=== PATIENT | male | born 1990 | race Caucasian/White ===

== ENCOUNTER 2018-03-23 16:18 | Inpatient (IN) | payer OTHER ==
[~2018-03-23] VITALS: Ht 188 cm; Wt 66.2 kg
[2018-03-23] MEDS ORDERED: MAG HYDROX/AL HYDROX/SIMETH 30 ML LIQUID UDC PO PRN (18:15)
[2018-03-23] MEDS ORDERED: LOPERAMIDE HCL 2 MG CAPSULE PO PRN (18:15)
[2018-03-23] MEDS ORDERED: ONDANSETRON ODT 4 MG TAB.RAPDIS SL PRN (18:15)
[2018-03-23] MEDS ORDERED: LORAZEPAM 1 MG TABLET PO PRN ×8 (18:15→18:45)
[2018-03-23] MEDS ORDERED: 5 DAY TAPER OF LORAZEPAM -SERENITY PROTOCOL PO PRN ×2 (18:15→18:30)
[2018-03-23] MEDS ORDERED: 5 DAY TAPER BUPRENORPHINE -SERENITY PROTOCOL SL PRN (18:15)
[2018-03-23] MEDS ORDERED: BUPRENORPHINE HCL 2 MG TAB.SUBL SL PRN (18:15)
[2018-03-23] MEDS ORDERED: MAGNESIUM HYDROXIDE 30 ML LIQUID UDC PO PRN (18:15)
[2018-03-23 18:28] VITALS: BP 127/76
[2018-03-23] MEDS ORDERED: THIAMINE HCL 200 MG/2 ML VIAL IM ONE (18:30)
[2018-03-23] MEDS ORDERED: LORAZEPAM 2 MG/1 ML VIAL IM PRN (18:30)
[2018-03-23 18:42] LABS: *AMPHETAMINE, URINE NEGATIVE (NEGATIVE); *BARBITURATE, URINE NEGATIVE (NEGATIVE); *CANNABINOID, URINE POSITIVE (NEGATIVE); *COCCAINE, URINE NEGATIVE (NEGATIVE); *OPIATE, URINE NEGATIVE (NEGATIVE); *PHENCYCLIDINE SCREEN,URINE NEGATIVE (NEGATIVE)
[2018-03-23] MEDS ORDERED: TRAZ-144 PO (18:46)
[2018-03-23] MEDS ORDERED: TRAZ-147 PO (18:46)
[2018-03-23 18:51] LABS: BASOPHILS # (AUTO) 0.1 K/uL (0.0-8.0); BASOPHILS % (AUTO) 0.5 % (0.0-2.0); EOSINOPHILS # (AUTO) 0.2 K/uL (0.0-0.7); EOSINOPHILS % (AUTO) 1.4 % (0.0-7.0); HEMATOCRIT 41.5 % (36.7-47.1); HEMOGLOBIN 14.5 g/dL (12.5-16.3); LYMPHOCYTES # (AUTO) 4.6 K/uL (20.0-40.0); LYMPHOCYTES % (AUTO) 39.7 % (20.5-51.5); MEAN CORPUSCULAR HEMOGLOBIN 34.3 uug (23.8-33.4); MEAN CORPUSCULAR HGB CONC 35 g/dL (32.5-36.3); MEAN CORPUSCULAR VOLUME 97.8 fL (73.0-96.2); MONOCYTES # (AUTO) 0.8 K/uL (2.0-10.0); MONOCYTES % (AUTO) 6.7 % (0.0-11.0); NEUTROPHILS % (AUTO) 51.7 % (38.5-71.5); PLATELET COUNT (AUTO) 288 K/uL (152-348); RED BLOOD CELL COUNT(AUTO) 4.24 MIL/uL (4.06-5.63); WHITE BLOOD COUNT (AUTO) 11.6 K/uL (3.6-10.2)
--- NOTE | 2018-03-23 18:58 | NUR ---
PRN Subutex 4mg SL administered for COWS 13, client presents with anxiety, agitation, nasal congestion, yawning several times, dilated pupils, cold/chills, clammy skin and increase P 91. Incoming nurse to reassess. Call light within reach.
--- NOTE | 2018-03-23 19:08 | NUR ---
ADMISSION/END OF SHIFT Patient arrived on the unit at 1842, body search completed by PIANO MECHANIC APPRENTICE no contraband was found, body assessment completed by male nurse, patient skin was noted intact, with no breakdown noted. Patient was noted with right hand knuckle area swollen, but skin remains intact. Per patient he was "punching things, yesterday" patient verbalized "its broken", patient reports he has not had an xray of the right hand taken yet. Patient was oriented to unit and to room, education regarding call light use was provided with good verbal understanding. Patient noted with slurred speech, restlessness, anxious and fidgety. Breath noted with alcohol smell. Patient was also noted with poor eye contact, disheveled and odorous with dirty fingernails. Patient is alert and oriented x4, noted with steady gait during ambulation. Patient BP: 127/76, HR: 86, T: 98.4, R: 16, O2 SAT: 100% Room air. Patient reports 7/10 pain to right hand. Patient reports he is here "because i am a drug addict" Reports substance use of. 1. etoh- Had first drink at the age of 9, reports that for "years" has been consuming 1-1.5 pints of vodka on a daily basis, last consumed 0.5 pint of vodka on 03/23/2018. 2. Xanax- Per patient was prescribed to him "years ago" for anxiety, patient unable to recall first time drug was used. Reports that for "years" he has been taking 2mg PO on a daily basis. 3. Heroin- reports first used at the age of 18, but for the past year has been consuming 0.5-1 gram on a daily basis via IV. Patient reports last used 03/21/2018 0.2 grams. 4. marijuana- Reports he first used at the age of 89 years old, and for "years" has been consuming unknown amounts of marijuana via inhalation. Patient reports past medical history of: pancreatitis, diagnosed 2 years ago. And reports he was diagnosed with anxiety and depression "years ago" Patient reports he was hospitalized overnight for pancreatitis in the last month, unable to recall the date. reports he does have a primary care physician, but unable to recall the name of his MD, because he hasn't seen him in years. patient reports he takes trazodone 150mg PO QHS, did not bring medication with him. 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 Patient reports he struggles with sobriety because he is unable to cope with stress therefore he drinks and uses drugs. Patient reports he feels sad all the time, verbalized " I dont like myself and feel sad all the time" Patient report he wants to become sober and wants to stop drinking and using drugs, verbalized " i am tired of hurting other people". Patient currently denies any SI/HI. Patient reports that after he completes detox he would like to go to a treatment center, then once he is home, continue his career. Patients fall and seizure precautions observed and in place. patients respirations are even and unlabored, no SOB, lungs are clear upon auscultation. Abdomen is soft and non distended, no N/V/D noted. Patients bowel sounds heard in all quadrants. Patients safety measures in place. Report relayed to Dr. Izquierdo, admitting orders were obtained by charge nurse, all admitting orders were input into [facility]. Patient scheduled to begin a 5 day Ativan and 5 day Subutex taper as of , patient will have PRN medications for s/sx of withdrawal. Admitting cow score of: 10, at 1830. Patient continues under close observation. will continue to monitor. Reassessed cow score at: 1858, with cow score of: 13. Patient administered Subutex as ordered by staff nurse. patient endorsed to retail shift leader nurse, all pertinent information was discussed.
[2018-03-23 19:11] LABS: BILIRUBIN,TOTAL 0.5 mg/dL (0.2-1.0); CREATININE 0.9 mg/dL (0.6-1.3); MAGNESIUM 2.5 mg/dL (1.8-2.4); POTASSIUM 3.2 mmol/L (3.5-5.1); TOTAL PROTEIN, SERUM 9.3 g/dL (6.4-8.2)
--- NOTE | 2018-03-23 19:30 | NUR ---
Start of Shift Endorsement received from day nurse. Pt admitted approximately 1740 today, 03/23/18, for medically managed withdrawal from ETOH, Xanax, Heroin and Marijuana, with ETOH and Marijuana being used earlier in day. Pt listed as a full code, vegatarian diet with allergies to Morphine and onions. Prior SZ hx, last Sz being "several years ago". Pt starting 5 day Ativan and Subutex tapers on 03/24/18 Pt assessed in room. Pt cooperative and A&O x 4, able to answer questions and respond to requests appropriately. Pt appears disheveled and dirty, with dirty clothes, dirty fingernails. Pupils 5mm approximately 40 minutes post Subutex. Pt tremulous, with increased anxiety and agitation. Pain in r hand reported as 9/10 (injured hitting mailbox on previous day), X-ray done during assessment. When asked if ready to quit, pt states that he is, saying "it is so awful", and begins to cry. Pt states he's never known anything "but the dark side" with both parents being drug addicts. Emar reviewed with Ativan 1mg PO and Motrin 600mg PO selected for immediate interventions. Pt on safety precautions, bed locked and in lowest position with siderails up x 2 and padded, call cheng within reach Will monitor for duration of shift attending promptly to all s/s's distress or w/d.
--- NOTE | 2018-03-23 19:58 | NUR ---
PRN Reassessment Subutex 4mg SL given 1 hour prior for COWS of 13. Presently pt reports feeling more relaxed, improved anxiety, sweats/chills improved. Will continue to monitor for all s/s's distress and w/d Addendum: 03/23/18 at 2049 by MITZI SMITH RN Med Effective
[2018-03-23 20:00] VITALS: BP 137/83
[2018-03-23] MEDS ORDERED: POTASSIUM CHLORIDE 20 MEQ TAB.PRT.SR PO ONE (20:03)
--- NOTE | 2018-03-23 20:40 | NUR ---
PRN Meds Motrin 600mg PO for r hand pain (x-ray negative for fx's) and Ativan 1mg PO for CIWA of 12, pt with anxiety, HR 108. Will continue to monitor, reassessing in 1 hour and promptly attending to all s/s's distress and w/d.
[2018-03-23] MEDS: IBUPROFEN 600 MG TABLET PO PRN (20:41)
--- NOTE | 2018-03-23 21:40 | NUR ---
PRN Reassessment Motrin 600mg PO and Ativan 1mg PO given 1 hour prior for r hand pain, 5/10, and CIWA 12 (anxiety, agitation, sweats/chills, tremors). At present pt reports hand pain with medication and ice pack improved to 2/10, reports decrease in anxiety, sweats/chills. Agitation, tremors improved. Meds effective. Will continue to monitor for s/s's distress or w/d.
[2018-03-23] MEDS ORDERED: diphenhydrAMINE 50 MG CAPSULE PO ONE (23:30)
--- NOTE | 2018-03-23 23:45 | NUR ---
PRN Med Benedryl 50mg PO given for insomnia. Will continue to monitor, reassessing in 1 hour, and promptly attending to any s/s's of distress or w/d.
[2018-03-24] VITALS: BP 121/61
[2018-03-24] MEDS ORDERED: POTASSIUM CHLORIDE 20 MEQ TAB.PRT.SR PO ONE
--- NOTE | 2018-03-24 | NUR ---
COWS/CIWA Deferred VS's obtained/stable. RR 16, even and nonlabored. COWS/CIWA deferred r/t pt sleeping/refused. Will continue to monitor, promptly attending to all s/s's distress or w/d.
--- NOTE | 2018-03-24 00:45 | NUR ---
PRN Reassessment Benedryl 50mg PO given 1 hour prior for insomnia. At present pt is sleeping, RR 14, even and nonlabored. Med effective. Will continue to monitor, reassessing for any s/s's of distress or w/d.
[2018-03-24 04:00] VITALS: BP 103/66
--- NOTE | 2018-03-24 04:00 | NUR ---
COWS/CIWA Deferred VS's obtained/stable. RR 15, even and nonlabored. COWS/CIWA deferred r/t pt sleeping/refused. Will continue to monitor, promptly attending to all s/s's distress or w/d.
--- NOTE | 2018-03-24 07:22 | NUR ---
End of Shift Endorsement given to day nurse. Pt admitted 03/23/18 for medically managed withdrawal from ETOH, Xanax, and Heroin, starting 5 day Ativan and 5 day Subutex tapers 03/24/18. Pt is a full code, on a vegatarian diet with allergies to Morphine and onions. Patient slept intermittently during night, with Ativan 1mg PO and Benedryl 50mg PO given as PRN'S. Motrin 600mg PO also given for r hand pain and inflammation, with ice pack. X-ray confirms no fx's. Pt appears underweight, hydration and nourishment encouraged, able to eat cereal/milk. Pt appearing anxious prior to evening PRN administrations, with c/o sweats/chills, pupils 5mm, restless and fidgety. Eye contact remains avoidant, speech soft, affect flat, hair disheveled and unkempt. Pt becoming tearful in evening discussing drug use, parents drug use, and his desire to become sober. Pt is able to discuss obstacles, encouragement provided and treatment plan explained. Last COWS 12, CIWA 12. Pt slept for 6 hours for shift, with 1500mls intake and 3 voids. Pt remains on safety, fall and seizure precautions. Bed is locked in lowest position with siderails up x 2 and padded, call cheng within reach and frequent rounding on pt with all needs attended to.
--- NOTE | 2018-03-24 07:25 | NUR ---
BEGINNING OF SHIFT Patient endorsement report received from manager shift nurse, all pertinent information was discussed. patient admitted on 03/24/2018 with admitting Dx: etoh/bzo/opiate withdrawal. patient to begin a 5 day Ativan and 5 day Subutex taper, scheduled for day 1 this morning. Per manager shift patient received PRN: Ativan 1 mg, Motrin, and Benadryl, medications were effective. patient with last cow score of: 12, and last ciwa score of:12. Patient slept for 6 hours. fall and seizure precautions observed and in place. Patient received in bed sound asleep, respirations even and unlabored at 16 bpm. patient is responsive to verbal stimuli. Will educate patient regarding plan of care for the day and medication regimen. Safety measures are in place. call light with in reach, will continue to monitor.
[2018-03-24 08:23] VITALS: BP 126/77
[2018-03-24] MEDS: LORAZEPAM 1 MG TABLET PO SCH ×4 (08:28→20:40)
[2018-03-24] MEDS: FOLIC ACID 1 MG TABLET PO SCH (08:28)
[2018-03-24] MEDS: IBUPROFEN 600 MG TABLET PO PRN ×2 (08:28→19:36)
[2018-03-24] MEDS: THIAMINE HCL 100 MG TABLET PO SCH (08:28)
[2018-03-24] MEDS: MULTIVITAMINS,THERAPEUTIC TABLET PO SCH (08:28)
--- NOTE | 2018-03-24 08:28 | NUR ---
PRN MOTRIN Patient complains of 7/10 pain to right hand. Area still noted with swelling and redness, xray of right hand negative for fractures. Will monitor effectiveness of medication, safety measures are in place.
[2018-03-24] MEDS: BUPRENORPHINE HCL 2 MG TAB.SUBL SL SCH ×4 (08:29→20:40)
[2018-03-24] MEDS ORDERED: TUBERCULIN,PURIF.PROT.DERIV. 5 TU/0.1 ML TEST ID ONE (09:00)
[2018-03-24] MEDS ORDERED: MULTIVITAMINS,THERAPEUTIC TABLET PO SCH (09:00)
--- NOTE | 2018-03-24 09:29 | NUR ---
MOTRIN REASSESSMENT Patient reports medication effective, current pain level 3/10, tolerable pain level as per patient, will continue to monitor closely. safety measures are in place. call light kept with in reach, encouraged adequate PO fluid intake as tolerated. safety measures in place.
[2018-03-24 12:21] VITALS: BP 132/88
[2018-03-24 16:01] VITALS: BP 135/79
--- NOTE | 2018-03-24 16:06 | NUR ---
END OF SHIFT/ENDORSED CARE Patient alert and oriented x4, during shift. Patient with admitting Dx: bzo/etoh/opiate withdrawal. Patient began first day of detox taper, consisting of Ativan and Subutex taper as ordered. During shift patient presented with: sweats, restlessness, inability to stay still, enlarged pupils, tremors, bone and joint aches, anxiety, gooseflesh, mild sensitivity to noise, and head fullness. Patient with initial ciwa score of: 19, and cow score of: 16, last cow score of: 16 and ciwa score of: 19. Dr. Kirk was notified of patients ciwa score due to being above 15. Patient received PPD to right F/A, at 0832, procedure well tolerated. Received PRN: Ibuprofen during shift, medication was effective one hour post administration. Patient noted isolative, prefers to stay in room. Encouraged patient to participate in activities and group therapies/sessions, refused to attend despite much encouragement. Patient noted with depressed and anxious mood. Has flat affect with poor eye contact. Noted dishelved, encouraged patient maintenance of personal space and personal hygiene. Patient encouraged to increase PO fluid intake as tolerated, noted with fair appetite during shift. Patients fall and seizure precautions observed and in place at all times. Patient was endorsed to staff nurse, all pertinent information was discussed.
--- NOTE | 2018-03-24 16:07 | NUR ---
Received endorsement of patient. Pt A&O X4, no s/s distress. will continue to monitor for s/s of withdrawals.
[2018-03-24] MEDS ORDERED: TRAZODONE 100 MG TABLET PO SCH (18:00)
[2018-03-24 18:13] LABS: CREATININE 0.9 mg/dL (0.6-1.3); POTASSIUM 3.6 mmol/L (3.5-5.1)
[2018-03-24 18:19] LABS: BILIRUBIN,TOTAL 1.1 mg/dL (0.2-1.0); TOTAL PROTEIN, SERUM 8.1 g/dL (6.4-8.2)
--- NOTE | 2018-03-24 18:35 | NUR ---
End of shift Patient alert and oriented x4, during shift. No changes since endorsement at 1600. Pt continues to present with: sweats, restlessness, enlarged pupils, tremors, bone and joint aches, anxiety, gooseflesh, mild sensitivity to noise, and head fullness. At 1600 last COWS 16, CIWA 19. Received PRN: Ibuprofen during shift. PO fluids 1500 ml, voids X1. Pt reports ALLERGY TO Morphine and onions, FULL CODE. All safety precautions in place. Call light within reach. Bed lowest lock position. Fall and seizure precautions. Will continue to monitor for withdrawal symptoms. Endorsed to PM shift.
--- NOTE | 2018-03-24 19:30 | NUR ---
Start of Shift Note Received 27 y/o male px, admitted for medically supervised withdrawal from ETOH, Xanax, and Heroin. Px was placed on 5 day Ativan and 5 day Subutex taper started today, 03/24/2018. Px is tolerating them. Last reported COWS 16 and CIWA 19 at 1600 by AM shift nurse. During the rounds at 1930, px is awake on bed in left side lying position. Px appears disheveled, unshaven, odorous and anxious. Px has flat affect and poor eye contact. Snacks and drinks noted on top of his bed side table. Px stated My anxiety is 6/10 and body aches is 7 or 8/10. Px also complained of hot/cold flushes and chills. Bilateral hand tremors noted. Bed on lowest position, side rails up padded and call light within reach. Well continue to monitor.
[2018-03-24] MEDS: ACETAMINOPHEN 325 MG TABLET PO PRN (19:36)
--- NOTE | 2018-03-24 19:36 | NUR ---
PRN medications Px complained of generalized body aches of 7-8/10. Px received Motrin 600 mg/tab,1 tab and Tylenol 325 mg/tab, 2 tabs as PRN meds. To reassess pain after 1 hour of administration. We'll continue to monitor.
[2018-03-24 20:00] VITALS: BP 129/85
[2018-03-24] MEDS: TRAZODONE 100 MG TABLET PO SCH (20:38)
--- NOTE | 2018-03-24 21:40 | NUR ---
Reassessment of pain Px stated "my pain right now is 5/10." We'll continue to monitor.
[2018-03-25] VITALS: BP 121/79
--- NOTE | 2018-03-25 | NUR ---
COWS and CIWA deferred COWS and CIWA deferred due to the px is asleep, to asses if the px is awake per doctor's order, We'll continue to monitor.
[2018-03-25] MEDS ORDERED: diphenhydrAMINE 50 MG CAPSULE PO ONE ×2 (01:00→23:00)
--- NOTE | 2018-03-25 01:10 | NUR ---
1x dose Benadryl Px complained of insomnia. Px received Benadryl 50 mg/cap, 1 cap PO as 1x dose medication. We'll continue to monitor.
[2018-03-25 04:00] VITALS: BP 118/74
--- NOTE | 2018-03-25 04:00 | NUR ---
COWS and CIWA deferred COWS and CIWA deferred due to the px is asleep, to assess if the px is awake per doctor's order. We'll continue to monitor.
[2018-03-25] MEDS: ACETAMINOPHEN 325 MG TABLET PO PRN ×2 (06:28→20:41)
[2018-03-25] MEDS: IBUPROFEN 600 MG TABLET PO PRN ×2 (06:28→20:40)
--- NOTE | 2018-03-25 06:28 | NUR ---
Body aches Px complained of generalized body aches of 8/10. Px received Motrin 600 mg/tab,1 tab and Tylenol 325 mg/tab, 2 tabs as PRN meds. To reassess after 1 hour of administration. We'll continue to monitor.
--- NOTE | 2018-03-25 07:10 | NUR ---
End of Shift Note During the shift at 1936, px received Motrin 600 mg PO and Tylenol 650 mg PO as PRN med for body aches of 7-8/10. They were effective. At 0110, px requested for something to help him sleep, Benadryl 50 mg given PO as 1x dose medication. It was effective. Px slept after an hour. Px slept for total of 7 hours. Pxs oral intake is 500 ml, voided 1x, without BM. Last COWS 12 and CIWA 15. At 0628, px received Motrin 600 mg PO and Tylenol 650 mg PO as PRN med for body aches of 8/10. At 0630, px is awake on bed in fowlers position. Bed on lowest position, side rails up padded and call light within reach. Well continue to monitor. Px is endorsed to AM shift nurse.
--- NOTE | 2018-03-25 07:30 | NUR ---
START OF SHIFT Client is in room, he is a/o x 4, he is fully ambulatory, pacing in his room, he stated, "I am super anxious, I can't stop the thoughts in my head, I need to sleep or I'm going to lose it." Client reports agitation, irritability, restless legs, generalized body aches, headache, abdominal cramps, tremors, decreased appetite, inability to sleep, and fatigue. Client presents with anxious, irritable mood, flat affect, dilated pupils, tremors, skin warm/clammy, and goosebump. He appears disheveled, scattered dirty clothes on the floor. Encourage client to keep his surroundings clean and free of clutter to prevent a fall, he verbalized understanding. Last CIWA / 12 @ 1999. PRN Tylenol 650mg PO & Motrin 600mg PO administered twice last night for generalized body aches, noted effective. PRN Benadryl 50mg PO for inability to sleep, client slept 7 hrs. Encourage client to increase PO fluid to facilitate detox. Encourage client to attend group therapy to learn skills to maintain sober. Seizure precautions rendered. Call light within reach.
[2018-03-25 08:00] VITALS: BP 122/74
[2018-03-25] MEDS: THIAMINE HCL 100 MG TABLET PO SCH (08:58)
[2018-03-25] MEDS: FOLIC ACID 1 MG TABLET PO SCH (08:58)
[2018-03-25] MEDS: LORAZEPAM 1 MG TABLET PO SCH ×3 (08:58→20:40)
[2018-03-25] MEDS: MULTIVITAMINS,THERAPEUTIC TABLET PO SCH (08:58)
[2018-03-25] MEDS: BUPRENORPHINE HCL 2 MG TAB.SUBL SL SCH ×3 (08:59→20:41)
[2018-03-25 10:06] LABS: HEPATITIS B SURFACE AG Negative (Negative)
[2018-03-25] MEDS: QUETIAPINE FUMARATE 25 MG TABLET PO SCH ×2 (10:17→17:06)
[2018-03-25 12:00] VITALS: BP 137/86
--- NOTE | 2018-03-25 14:01 | NUR ---
Client was prompted to attend group counseling sessions and agreed to do so.
[2018-03-25 16:55] VITALS: BP 127/69
--- NOTE | 2018-03-25 19:16 | NUR ---
END OF SHIFT Client is in group therapy, he is a/o x 4, he continues to present with agitation, irritability, restless legs, generalized body aches, headache, abdominal cramps, tremors, decreased appetite, feeling paranoid, and fatigue. Last CIWA 15 /COWS 15 @ 1600. Started Seroquel 50 mgs PO BID. Client is compliant with group therapy. Client consumes 50-75% of meals. Adequate PO fluid 2500mL, void x 6. Seizure precautions rendered. Call light within reach.
--- NOTE | 2018-03-25 19:30 | NUR ---
Start of Shift Note Received 27 y/o male px, admitted for medically supervised withdrawal from ETOH, Xanax, and Heroin. Px was placed on 5 day Ativan and 5 day Subutex taper started 03/24/2018. Px is tolerating them. Last reported COWS 15 and CIWA 15 by AM shift nurse. During the rounds at 1930, px is awake on bed in fowlers position. Px appears disheveled, unshaven, and odorous. Px seems better than yesterday. Px has good eye contact. Snacks and drinks noted on top of his bed side table. Px stated My anxiety is 3/10 and body aches is 6/10. Px complained of visual hallucination, hot/cold flushes, sweats and chills. Bilateral hand tremors noted. Bed on lowest position, side rails up padded and call light within reach. Well continue to monitor.
[2018-03-25 20:00] VITALS: BP 128/75
[2018-03-25] MEDS: TRAZODONE 100 MG TABLET PO SCH (20:40)
--- NOTE | 2018-03-25 20:40 | NUR ---
PRN medications Px complained of generalized body aches of 6/10. Px received Motrin 600 mg/tab,1 tab and Tylenol 325 mg/tab, 2 tabs as PRN meds. To reassess pain after 1 hour of administration. We'll continue to monitor.
--- NOTE | 2018-03-25 21:40 | NUR ---
Reassessment of Pain Px stated that he feels better now with pain scale of 3-4/10. We'll continue to monitor.
--- NOTE | 2018-03-25 23:04 | NUR ---
1x dose of Benadryl Px requested for Benadryl. 1x dose of Benadryl 50 mg PO was given for insomnia. We'll continue to monitor.
[2018-03-26] VITALS: BP 123/72
--- NOTE | 2018-03-26 01:08 | NUR ---
1x dose Vistaril Px still complained of anxiety and insomnia. Vistaril 25 mg/cap, 2 caps given PO as 1x dose medication. We'll continue to monitor.
[2018-03-26] MEDS ORDERED: HYDROXYZINE PAMOATE 25 MG CAPSULE PO ONE (01:30)
--- NOTE | 2018-03-26 02:10 | NUR ---
Reassessment of insomnia Px still awake and can't sleep. Vistaril and Benadryl were not effective. We'll continue to monitor.
[2018-03-26 04:00] VITALS: BP 129/78
[2018-03-26] MEDS ORDERED: LORAZEPAM 1 MG TABLET PO ONE ×2 (04:00)
--- NOTE | 2018-03-26 04:08 | NUR ---
1x dose of Ativan Ativan 1 mg/tab, 2 tabs given PO as 1x dose for increase anxiety and agitation. CIWA 21 at this time. We'll continue to monitor.
--- NOTE | 2018-03-26 07:10 | NUR ---
End of Shift Note During the shift at 2040, px received Motrin 600 mg PO and Tylenol 650 mg PO as PRN med for body aches of 7/10. They were effective. At 2304, px requested for something to help him sleep, Benadryl 50 mg given PO as 1x dose medication. It was not effective. At 0108, Vistaril 50 mg given PO for anxiety and insomnia. It was not effective. At 0408, Px received Ativan 2 mg PO as 1 x dose for agitation and increase anxiety. Pxs oral intake is 1000 ml, voided 3x, without BM. Px slept for 1 hours. Last COWS 16 and CIWA 21. At 0630, px is asleep on bed in fowlers position. Bed on lowest position, side rails up padded and call light within reach. Well continue to monitor. Px is endorsed to AM shift nurse.
--- NOTE | 2018-03-26 07:52 | NUR ---
START OF SHIFT Pt is a 27 yr old male. AA&Ox4. Pt was admitted on 03/23/18 for ETOH/Benzo/Opiate withdrawal and is on 5 day Ativan and 5 day Subutex taper as ordered. Received report from compensation coordinator nurse. Pt received Motrin PRN, Tylenol PRN, Benadryl PRN and Ativan 2mg x1 during the night. Medication was ineffective. Pt had difficulty sleeping through the night and slept for 1 hrs. Pt is currently c/o difficultly sleeping, generalized muscle aching, abdominal cramping, visual and auditory hallucinations, and nausea. Pt denies any episodes of emesis. Pt was encouraged increase fluid intake. Pt is on fall and seizure precautions. Call light is within reach. Will continue to monitor.
[2018-03-26 08:00] VITALS: BP 144/103
[2018-03-26] MEDS: MULTIVITAMINS,THERAPEUTIC TABLET PO SCH (08:10)
[2018-03-26] MEDS: IBUPROFEN 600 MG TABLET PO PRN ×2 (08:10→20:29)
[2018-03-26] MEDS: QUETIAPINE FUMARATE 25 MG TABLET PO SCH (08:10)
--- NOTE | 2018-03-26 08:10 | NUR ---
PRN GIVEN Pt is c/o generalized body aches 03/04. facial grimacing is observed. Motrin 600mg PO PRN was given as ordered. Encourged increase fluid intake. Will continue to monitor.
[2018-03-26] MEDS: THIAMINE HCL 100 MG TABLET PO SCH (08:11)
[2018-03-26] MEDS: FOLIC ACID 1 MG TABLET PO SCH (08:11)
[2018-03-26] MEDS: LORAZEPAM 1 MG TABLET PO SCH ×4 (08:15→20:29)
[2018-03-26] MEDS ORDERED: BUPRENORPHINE HCL 2 MG TAB.SUBL SL SCH (09:00)
--- NOTE | 2018-03-26 09:10 | NUR ---
PRN RE-ASSESSMENT Motrin PRN was effective. Pt states pain level subsided to 3/10. Encouraged increase fluid intake. Will continue to monitor.
[2018-03-26 12:00] VITALS: BP 141/85
[2018-03-26] MEDS: ACETAMINOPHEN 325 MG TABLET PO PRN (13:14)
--- NOTE | 2018-03-26 13:14 | NUR ---
PRN GIVEN Pt c/o generalized body aches 5/10. facial grimacing is observed. Tylenol 650mg PO PRN was given as ordered. Encouraged increase fluid intake. Will continue to monitor
--- NOTE | 2018-03-26 14:14 | NUR ---
PRN RE-ASSESSMENT Tylenol PO PRN was effective. pt states pain level subside to 2/10. Encouraged increase fluid intake. Will continue to monitor.
[2018-03-26] MEDS: BUPRENORPHINE HCL 2 MG TAB.SUBL SL SCH ×2 (14:48→20:29)
[2018-03-26 16:00] VITALS: BP 127/75
--- NOTE | 2018-03-26 19:00 | NUR ---
END OF SHIFT Pt is a 27 yr old male, AA&Ox4. Pt was admitted on 03/13/18 for ETOH/BENZO/Opiate withdrawal and is on 5 day Ativan and 5 day Subutex taper as ordered. Medication allison well. Pt has been c/o auditory hallucinations, lack of sleep and loss of appetite, generalized body aches, nausea, anxiety and agitation. Pt was noted with flat affect. Fine tremors were noted on BUE. No SI/HI noted. Pt was seen and examined by Dr. Benitez. Pt refused to take any psychotropic medication as prescribed and refused to take Seroquel. Dr. Benitez discontinued Seroquel order and increased the dose for Trazodone for insomnia. Pt was encouraged increase fluid intake for hydration. Pt received Motrin 600mg PO PRN at 0810 and Tylenol 650mg PO PRN at 1314 for pain mgt. Medication was effective. Last COWS score was 10 and CIWA score was 13 at 1600. Safety precautions observed. Call light is within reach. Endorsed to speech lang path nurse to continue with care.
[2018-03-26 20:00] VITALS: BP 123/74
--- NOTE | 2018-03-26 20:00 | NUR ---
START OF SHIFT NOTE RECEIVED REPORT FROM DAY SHIFT NURSE. PATIENT IS A 27 YEAR OLD MALE ADMITTED FOR 27 YEAR OLD FOR ETOH/BENZO/OPIATE WITHDRAWAL. PATIENT IS ON HIS 3RD OF HIS 5 DAY ATIVAN AND 5 DAY SUBUTEX TAPER. PATIENT WAS HAVING DIFFICULTY FALLING ASLEEP LAST NIGHT. PRN TRAZADONE WAS INCREASED. PATIENT WAS GIVEN PRN MOTRIN AND TYLENOL. LAST COWS 10 AND CIWA 13. PATIENT IN BED, ALERT AND ORIENTED X 4. RESPIRATION EVEN AND UNLABORED. PATIENT PRESENTS WITH FLAT AFFECT, DEPRESSED MOOD, ANXIETY, IRRITATED, SWEATING, MOIST PALMS, HE FEELS HOT AND COLD, ITCHING, SENSITIVE TO LIGHT , SLIGHT TREMORS TO BILATERAL HANDS. HE STATES THE MAIN THING IS MY INSOMNIA . 'I'M SO TIRED AND I WANT TO GO TO SLEEP. RELAXATION TECHNIQUE AND POSITIVE ENCOURAGEMENT GIVEN. WILL CONTINUE TO MONITOR.
[2018-03-26] MEDS: TRAZODONE 100 MG TABLET PO SCH (20:29)
--- NOTE | 2018-03-26 20:29 | NUR ---
PRN MOTRIN ADMINISTRATION PATIENT C/O GENERALIZED BODY ACHES. WILL MONITOR FOR EFFECTIVENESS
--- NOTE | 2018-03-26 21:29 | NUR ---
PRN MOTRIN RE-ASSESSMENT PATIENT STATES MOTRIN HELPFUL AND EFFECTIVE.
--- NOTE | 2018-03-26 22:22 | NUR ---
PRN Zyprexa Zydis Patient verbalized inability to sleep and is getting agitated. Dr. Benitez notified and he ordered Zyprexa Zydis 10 mg one-time.
[2018-03-26] MEDS ORDERED: OLANZAPINE ZYDIS 5 MG TAB.RAPDIS PO ONE (22:30)
--- NOTE | 2018-03-26 23:22 | NUR ---
ONE TIME ZYPREXA RE-ASSESSMENT PATIENT IN THE ROOM, STILL AWAKE . ZYPREXA INEFFECTIVE. RELAXATION TECHNIQUE PROVIDED.
[2018-03-27] VITALS: BP_SYST 128; BP_SYST 144; BP_DIAS 78; BP_DIAS 79
--- NOTE | 2018-03-27 00:23 | NUR ---
ONE TIME ATIVAN ADMINISTRATION PATIENT AGITATED, UNABLE TO SLEEP, RESTLESS, ANXIOUS, NOTED TOSSING AND TURNING IN BED. WILL MONITOR FOR EFFECTIVENESS
[2018-03-27] MEDS ORDERED: LORAZEPAM 1 MG TABLET PO ONE ×2 (00:30→06:15)
--- NOTE | 2018-03-27 01:23 | NUR ---
PRN ATIVAN RE-ASSESSMENT PATIENT IN BED, AWAKE. STILL ANXIOUS, RESTLESS, IRRITABLE , TOSSING AND TURNING IN BED. CIWA 17
[2018-03-27] MEDS: IBUPROFEN 600 MG TABLET PO PRN (02:41)
--- NOTE | 2018-03-27 02:41 | NUR ---
PRN BENADRYL AND MOTRIN ADMINISTRATION PATIENT STILL WITH DIFFICULTY FALLING ASLEEP AND C/O GENERALIZED BODY ACHES. WILL MONITOR FOR EFFECTIVENESS
[2018-03-27] MEDS ORDERED: diphenhydrAMINE 50 MG CAPSULE PO ONE (02:45)
[2018-03-27] MEDS ORDERED: LORAZEPAM 2 MG/1 ML VIAL IM ONE (03:00)
[2018-03-27] MEDS ORDERED: diphenhydrAMINE 50 MG/1 ML VIAL IM ONE (03:00)
[2018-03-27] MEDS ORDERED: HALOPERIDOL LACTATE 5 MG/1 ML VIAL IM ONE (03:00)
--- NOTE | 2018-03-27 03:20 | NUR ---
One-time Haldol, Ativan and Benadryl IM Stat Around 0255, patient experienced auditory and visual hallucinations, screaming inside his room, stating that he was being chased by the police and he is seeing his mom being hit by the bat. Dr. Benitez notified, ordered one-time Haldol 5 mg IM stat, one-time Ativan 2 mg IM stat and one-time Benadryl 50 mg IM stat. Medications administered. Patient was placed on 1:1 per MD order.
--- NOTE | 2018-03-27 03:50 | NUR ---
ONE TIME HALDOL, ATIVAN AND BENADRYL RE-ASSESSMENT PATIENT IN BED, STILL REMAIN AWAKE BUT CALM. ON 1:1 FOR SAFETY. WILL CONTINUE TO MONITOR
[2018-03-27 04:00] VITALS: BP 116/74
[2018-03-27] MEDS ORDERED: CLONIDINE HCL 0.1 MG TABLET PO ONE (05:15)
--- NOTE | 2018-03-27 05:26 | NUR ---
PRN CATAPRES ADMINISTRATION PATIENT STILL AWAKE, RESTLESS, PACING INSIDE THE ROOM, ANXIOUS WITH AUDITORY AND VISUAL HALLUCINATIONS. CONTINUE ON 1:1 FOR SAFETY MEASURES.
--- NOTE | 2018-03-27 06:18 | NUR ---
PRN ATIVAN ADMINISTRATION PATIENT STILL HAVING AUDITORY HALLUCINATIONS STATING HE SEES SHADOWS, TECH NOTED GRABBING UNSEEN OBJECTS AND AIR AND TALKING TO SELF. NOTIFIED AND MADE AN ORDER TO GIVE ATIVAN. WILL MONITOR FOR EFFECTIVENESS. ON 1:1 FOR SAFETY .
--- NOTE | 2018-03-27 06:26 | NUR ---
PRN CATAPRES RE-ASSESSMENT PATIENT STILL ANXIOUS, MEDICATION INEFFECTIVE. WILL CONTINUE TO MONITOR
--- NOTE | 2018-03-27 07:18 | NUR ---
PRN ATIVAN RE-ASSESSMENT PATIENT STILL AWAKE AND STATES HE STILL CAN SLEEP. PATIENT NOTED STILL HAVING AUDITORY AND VISUAL HALLUCINATION
--- NOTE | 2018-03-27 07:23 | NUR ---
END OF SHIFT NOTE PATIENT SLEPT 1 HOURS. FLUID INTAKE 500 ML. VOIDED X 1. NO BM. PATIENT HAD DIFFICULTY FALLING ASLEEP AND HAD AN EPISODE OF AUDITORY AND VISUAL HALLUCINATION DURING SHIFT. TRAZADONE WAS INCREASED BY THE PSYCHIATRIST BUT INEFFECTIVE. SCHEDULED MEDICATION AND TAPER WAS GIVEN SCHEDULED. PRN MOTRIN WAS GIVEN DUE TO GENERALIZED BODY ACHES. AT 2234, WAS NOTIFIED DUE TO PATIENT UNABLE TO FALL ASLEEP, ONE TIME ZYPREXA ZYDIS GIVEN BUT INEFFECTIVE. AT 22, PRN ATIVAN WAS GIVEN BUT INEFFECTIVE. PRN BENADRYL AND MOTRIN WAS GIVEN AT 024 . AT 0255, PATIENT WAS HAVING AUDITORY AND VISUAL HALLUCINATION , PATIENT WAS YELLING AND SCREAMING IN THE ROOM, HE STATES THAT HE WAS BEING CHASED BY THE POLICE AND HE IS SEEING HIS MOM BEING HIT BY THE BAT, PRN ATIVAN IM, BENADRYL IM AND HALDOL IM GIVEN. PATIENT STILL AWAKE BUT CALM AFTER RE-ASSESSMENT. PATIENT WAS PUT ON 1:1 FOR SAFETY. AT 0526, PATIENT NOTED PACING THE HALLWAY, ANXIOUS, RESTLESS. PRN CLONIDINE GIVEN, INEFFECTIVE. CONTACTED AND MADE NEW ORDER OF ATIVAN FOR AUDITORY AND VISUAL HALLUCINATIONS, RESTLESSNESS, AND ANXIETY. PRN ATIVAN INEFFECTIVE, HE STATES HE STILL CAN SLEEP AND NOTED WITH AUDITORY AND VISUAL HALLUCINATIONS. CONTINUOS REDIRECTION THROUGHOUT SHIFT AND RELAXATION TECHNIQUE PROVIDED. ENDORSED TO NEXT SHIFT. WILL CONTINUE TO MONITOR. LAST 17 AND .
--- NOTE | 2018-03-27 07:40 | NUR ---
START OF SHIFT Pt is a 27 yr old male. AA&O to person, place and situation. Pt was admitted on 03/23/18 for ETOH/Benzo/Opiate withdrawal and is on 5 day Ativan and 5 day Subutex taper as ordered. Received report from commercial retoucher nurse. Pt received multiple PRNs during the night for visual and auditory hallucinations. Pt was placed on 1:1 for safety. All PRN's were ineffective. Pt continues to have auditory and visual hallucinations. Pt was not able to sleep during the night and only slept for 1 hr. Pt is noted with fine tremors on BUE. Pt is c/o generalized body aches, fatigue and lack of sleep. Pt is on fall and seizure precautions. Call light is within reach. Will continue to monitor.
[2018-03-27 08:00] VITALS: BP 120/66
[2018-03-27] MEDS: MULTIVITAMINS,THERAPEUTIC TABLET PO SCH (08:23)
[2018-03-27] MEDS: ACETAMINOPHEN 325 MG TABLET PO PRN (08:23)
[2018-03-27] MEDS: LORAZEPAM 1 MG TABLET PO SCH ×2 (08:23→14:57)
[2018-03-27] MEDS: FOLIC ACID 1 MG TABLET PO SCH (08:23)
[2018-03-27] MEDS: BUPRENORPHINE HCL 2 MG TAB.SUBL SL SCH ×3 (08:23→21:38)
--- NOTE | 2018-03-27 08:23 | NUR ---
PRN GIVEN Pt c/o generalized body aches 01/02. Tylenol 650mg PO PRN was given as ordered. encouraged increase fluid intake. Will continue to monitor.
[2018-03-27] MEDS: THIAMINE HCL 100 MG TABLET PO SCH (08:33)
--- NOTE | 2018-03-27 09:00 | NUR ---
COMMUNICATION/CRISIS TEAM CALLED Pt is noted with increase confusion and visual and auditory hallucinations. Pt was noted walking down the hallway and stating he was looking for his grandmother. Pt then stated of wanting to leaving AMA to be with his dog. Pt states his dog "has 2 days to live" and wants to spend the remaining time with his dog. Pt is noted with slurred speech and is flat affect. Fine tremors are seen on BUE. Pt is oriented to person and situation but is confused in place and time. Dr. Benitez was notified with new order to call Crisis team to evaluate. Crisis Team was call at this time. DILIP Brown was contacted. Will continue to f/u
--- NOTE | 2018-03-27 09:23 | NUR ---
PRN RE-ASSESSMENT Tylenol PRN was effective. Pt denies any pain or discomfort. Will continue to monitor
[2018-03-27] MEDS ORDERED: LORAZEPAM 1 MG TABLET PO PRN (09:30)
--- NOTE | 2018-03-27 10:00 | NUR ---
CRISIS TEAM ARRIVED DILIP Brown arrived on the unit. Will continue to f/u.
--- NOTE | 2018-03-27 10:15 | NUR ---
[address] on a 5150 hold for gravely disabled adult at this time.
--- NOTE | 2018-03-27 10:20 | NUR ---
MD Communication Dr. Kirk notified that pt is placed on [address] score [address] Kirk ordered Ativan 2mg IV Q2HPRN for CIWA >16. New ordered noted and carried out.
[2018-03-27] MEDS ORDERED: LORAZEPAM 2 MG/1 ML VIAL IV PRN (10:30)
--- NOTE | 2018-03-27 11:34 | NUR ---
PRN GIVEN Pt continues to have visual and auditory hallucinations. Pt states of seeing his girlfriend in the hallway. Pt's speech is noted garbled. Fine tremors are noted on BUE. CIWA score is 40. Ativan 2mg PO PRN was administered as ordered. Ativan 2mg/IM PRN was not administered due to pt does not have an IV access at this time. RN nurse had x2 attempts to insert IV with no success. Resource nurse was contacted. Dr. Kirk was made aware. Will continue to f/u.
[2018-03-27 12:00] VITALS: BP 118/62
--- NOTE | 2018-03-27 12:00 | NUR ---
IV INSERT 20 gauge IV was insert on Right FA. IV is intact and patent.
--- NOTE | 2018-03-27 12:34 | NUR ---
PRN RE-ASSESSMENT Ativan 2mg PO PRN was effective. CIWA score went from 40 to 34 within 1 hour. Pt continues to be noted with visual and auditory hallucinations. Pt was able to rest for 30 minutes. Pt was encouraged increase fluid intake for hydration. 1:1 sitter is at bedside. Will continue to monitor.
--- NOTE | 2018-03-27 13:50 | NUR ---
PRN Ativan Pt has visual and auditory hallucinations. He is confused to place and time. Speech is incoherent. He is observed with tremors. CIWA 34. PRN Ativan IV administered per orders.
--- NOTE | 2018-03-27 14:15 | NUR ---
PRN RE-ASSESSMENT Pt continues to be observed wtih increase confusion to place, time and situation. Pt is still noted with visual and auditory hallucinations. Pt is stating, "I'm the character, I need to print that form for me". Seat Pack Inspector tried to redirect pt to reality but was unsuccessful. Fine tremors are noted. CIWA score at this time is 33. Dr. Kirk is made aware with new order to discontinue Ativan taper and change taper to 4 day Phenobarbital taper starting today on 03/27/18. New order was noted and carried out.
[2018-03-27] MEDS ORDERED: 6 DAY PHENOBARBITAL TAPER -SERENITY PROTOCOL PO PRN (15:30)
[2018-03-27] MEDS ORDERED: PHENOBARBITAL 60 MG TABLET PO ONE ×2 (15:45→21:00)
[2018-03-27 16:00] VITALS: BP 142/101
[2018-03-27] MEDS: OLANZAPINE ZYDIS 5 MG TAB.RAPDIS PO SCH (16:32)
[2018-03-27] MEDS ORDERED: PHENOBARBITAL 60 MG TABLET PO SCH ×2 (17:00→17:50)
--- NOTE | 2018-03-27 19:00 | NUR ---
END OF SHIFT Pt is a 27 yr old male, AA&O to person. Pt has been noted with increase confusion and visual and auditory hallucinations. Pt remains on 1:[address] for [address] on 5150 for gravely disabled adult. Pt was seen and examined by Dr. Kirk with new order to discontinue Ativan taper and start on 4 day Phenobarbital taper as ordered. Last COWS score was 13 and CIWA score was 32 at 1600. Pt received Tylenol PO PRN at 0823, Ativan 2mg PO PRN at 1134 and Ativan 2mg /IV at 1345. Medication was some what effective. Pt still was unable to sleep during the day. Pt was encouraged increase fluid intake for hydration. Safety precautions observed. Endorsed to night warehouse selector nurse to continue with care.
--- NOTE | 2018-03-27 19:51 | NUR ---
START OF SHIFT NOTE Rcvd report from outgoing nurse, pt is currently in his room. Pt is a 27 y/o male A/O to person only. Pt was admitted fro medically supervised withdrawal from ETOH, Xanax, and Heroin. Pt. has a 20g. on the right forearm. Pt c/o body aches, sweats, chills, nausea, fine tremors, and cramping. Pt has been presenting w/ insomnia, anxiety, and visual hallucinations. Pt has not slept since admission on 03/23/18 except for 30 min. Pt has been placed on a 5150 as of 1030 03/27/18 for being gravely disabled. Pt is currently on 1:1 to observation. PRN Ativan IVP and PO, Phenobarbital, and Tylenol given and noted ineffective during previous shift. Last CIWA 32 and COWS 13 @ 1600. Call light is within reach. Pt will continue to be monitored and needs met.
[2018-03-27 20:00] VITALS: BP 116/71
[2018-03-27] MEDS: TRAZODONE 100 MG TABLET PO SCH (21:37)
--- NOTE | 2018-03-27 22:35 | NUR ---
MD Verbal Order: New order per MD to renew 2mg Ativan IV Q2HPRN for an additional 12 hours. New order to redraw CBC, CMP, Magnesium routine.
[2018-03-28] VITALS: BP 112/66
[2018-03-28] MEDS: LORAZEPAM 2 MG/1 ML VIAL IV PRN ×3 (00:01→05:11)
--- NOTE | 2018-03-28 00:01 | NUR ---
PRN ATIVAN ADMINISTRATION Ativan 2mg IVP given for CIWA > 16. CIWA 34. Pt c/o insomnia and presenting w/ anxiety, agitation, and restlessness. Will reassess in 1 hr.
--- NOTE | 2018-03-28 00:31 | NUR ---
PRN ATIVAN REASSESSMENT Pt is awake and in bed. Pt continues to be restless and agitated. Pt still c/o anxiety. Will discuss pt w/ Dr. Kirk.
--- NOTE | 2018-03-28 01:44 | NUR ---
BEHAVIORAL NOTE Pt pulled out his IV access. Pt stated "I didn't know I wasn't supposed to do that". Site was assessed and dressed. New IV access was established in pt's right wrist w/ 20gauge. IV was flushed and is patent. Site was wrapped w/ tape and krylix.
--- NOTE | 2018-03-28 02:27 | NUR ---
PRN ATIVAN ADMINISTRATION Ativan 2mg IVP given for CIWA >16. CIWA 34. Pt is presenting w/ insomnia. Will reassess pt in 30 min.
--- NOTE | 2018-03-28 02:57 | NUR ---
PRN ATIVAN REASSESSMENT Pt is awake in bed. Pt is restless and having auditory hallucinations. Will reevaluate @ 0427 and every 2 hrs thereafter per MD.
[2018-03-28 04:00] VITALS: BP 106/72
--- NOTE | 2018-03-28 05:11 | NUR ---
PRN ATIVAN ADMINISTRATION Ativan 2mg IVP given for CIWA > 16. CIWA 33. Pt still presenting w/ insomnia. Will reassess pt in 30 min.
--- NOTE | 2018-03-28 05:41 | NUR ---
PRN ATIVAN REASSESSMENT Pt is awake in bed. Pt is restless and experiencing auditory and visual hallucinations. Will continue w/ Ativan per MD order Q2HR.
--- NOTE | 2018-03-28 07:23 | NUR ---
END OF SHIFT NOTE Endorsed pt to oncoming nurse, pt is currently in his room. Pt is a 27 y/o male A/O to person and place. Pt was admitted for medically supervised withdrawal from ETOH, Xanax, and Heroin. Pt. has a 20g. on the right wrist after pulling out the IV access in the right forearm. Pt c/o body aches, sweats, chills, nausea, fine tremors, and cramping. Pt has been presenting w/ insomnia, anxiety, and visual and auditory hallucinations. Pt has not slept since admission on 03/23/18 except for 10 min sporadically. Pt has been placed on a 5150 as of 1030 03/27/18 for being gravely disabled. Pt is currently on 1:1 to observation. PRN Ativan 2mg IVP x 3 given for insomnia and noted ineffective. Pt's fluid intake was 1380ml and he voided 5 times. Last CIWA 33 and COWS 10 @ 0400. Call light is within reach.
--- NOTE | 2018-03-28 07:30 | NUR ---
Start Of Shift Report received from outreach team member nurse. Pt is a 27 y/o male A/O to person and place. Pt was admitted for medically supervised withdrawal from ETOH, Xanax, and Heroin. Pt. has a 20G on the right wrist intact patent and flushes well. Per outreach team member nurse pt's last CIWA was 33 and COWS was a 10. Pt continues to take taper medication. Upon start of shift pt noted laying in his bed with his eyes closed resting, breathing even and unlabored. Pt is having active hallucinations, visual and auditory. When greeted pt stated Thank you for giving me the medications, where was the medication that you placed on my bed?". Pt's room appears unorganized and messy, pt has water, soda bottles and candy wraps thrown around the room, there is candy all over the floor. Pt appears anxious, and confused. During assessment, pt is AOx3. Lung sounds clear bilaterally. Radial pulse is regular and non-bounding. Abdomen soft and non-tender. Pt's skin is warm and intact. pt denies any pain at the moment. Encouraged pt to drink plenty of fluids to keep hydrated and help the detox process. Pt received PRN Ativan 2mg IVPx2 last night, Pt has not slept in the past few days. Bed in lowest position. Side rails up x2. Call light functioning and within reach. All needs attended and met. Will continue to monitor.
[2018-03-28 08:00] VITALS: BP 104/68
[2018-03-28] MEDS ORDERED: BUPRENORPHINE HCL 2 MG TAB.SUBL SL SCH (09:00)
[2018-03-28] MEDS ORDERED: LORAZEPAM 1 MG TABLET PO SCH (09:00)
[2018-03-28] MEDS: OLANZAPINE ZYDIS 5 MG TAB.RAPDIS PO SCH ×2 (09:08→17:28)
[2018-03-28] MEDS: MULTIVITAMINS,THERAPEUTIC TABLET PO SCH (09:08)
[2018-03-28] MEDS: PHENOBARBITAL 60 MG TABLET PO SCH ×3 (09:08→17:28)
[2018-03-28] MEDS: THIAMINE HCL 100 MG TABLET PO SCH (09:08)
[2018-03-28] MEDS: FOLIC ACID 1 MG TABLET PO SCH (09:09)
[2018-03-28 10:19] LABS: BASOPHILS # (AUTO) 0.1 K/uL (0.0-8.0); BASOPHILS % (AUTO) 0.7 % (0.0-2.0); EOSINOPHILS # (AUTO) 0.1 K/uL (0.0-0.7); EOSINOPHILS % (AUTO) 1.3 % (0.0-7.0); HEMATOCRIT 40.7 % (36.7-47.1); HEMOGLOBIN 14.4 g/dL (12.5-16.3); LYMPHOCYTES % (AUTO) 25.4 % (20.5-51.5); MEAN CORPUSCULAR HEMOGLOBIN 34.4 uug (23.8-33.4); MEAN CORPUSCULAR HGB CONC 35 g/dL (32.5-36.3); MEAN CORPUSCULAR VOLUME 97.3 fL (73.0-96.2); MONOCYTES # (AUTO) 0.8 K/uL (2.0-10.0); NEUTROPHILS # (AUTO) 4.9 K/uL (1.8-8.9); NEUTROPHILS % (AUTO) 62.6 % (38.5-71.5); PLATELET COUNT (AUTO) 190 K/uL (152-348); RED BLOOD CELL COUNT(AUTO) 4.18 MIL/uL (4.06-5.63); WHITE BLOOD COUNT (AUTO) 7.8 K/uL (3.6-10.2)
[2018-03-28 10:33] LABS: BILIRUBIN,TOTAL 0.7 mg/dL (0.2-1.0); MAGNESIUM 2.3 mg/dL (1.8-2.4); POTASSIUM 4.4 mmol/L (3.5-5.1); TOTAL PROTEIN, SERUM 8.6 g/dL (6.4-8.2)
[2018-03-28 12:00] VITALS: BP 133/79
--- NOTE | 2018-03-28 13:35 | NUR ---
Order Note Received order from MD to place Ativan 2mg IVP Q2H for hallucinations. Will place order and continue monitoring patient.
[2018-03-28] MEDS ORDERED: LORAZEPAM 2 MG/1 ML VIAL IV PRN (13:45)
--- NOTE | 2018-03-28 14:21 | NUR ---
PRN MEDICATION Pt presented with visual and audio hallucinations, c/o anxiety. stating, pt verbalized visualizing objects that were not there, CIWA 22 PRN Ativan 2mg IVP administered per MD order will continue to monitor patient
--- NOTE | 2018-03-28 15:21 | NUR ---
PRN ATIVAN REASSESSMENT medication partially effective Pt is awake in bed. Pt is restless and experiencing auditory and visual hallucinations. CIWA has dropped to 21 Will continue w/ Ativan per MD order Q2HR.
[2018-03-28 16:00] VITALS: BP 117/70
--- NOTE | 2018-03-28 19:01 | NUR ---
End Of Shift Report given to night shift manager nurse. Plan of care followed, all scheduled medications administered. VS monitored closely Q4H. Withdrawal symptoms were closely monitored. Initial COWS 10 CIWA 24. Patient encouraged adequate PO fluid intake as tolerated to help with the detox process. Patient presented with tremors hallucinations sweats and anxiety during the day. MD aware of hallucinations. Last COWS 9 CIWA 21. Per patient, taper medications have been helping him with his withdrawal symptoms. Pt ate all of his meals. Pt received PRN Ativan 2mg IVP for hallucinations. Patient is on a 1:1 for safety. Patient encouraged to attend group therapies/sessions to learn new coping skills to recent relapse, patient denies SI/HI. Participated in group and therapy sessions. All needs met and attended
--- NOTE | 2018-03-28 19:30 | NUR ---
START OF SHIFT Received 27 year old male patient admitted on 03/23/18 for ETOH, Xanax, Heroin and Marijuana withdrawal. Pt is full code with allergies to morphine and onions. He is alert and oriented x2. Per endorsement, pt had not slept for four days and was actively hallucinating. He is on a 1:1 on was placed on a 5150 f for GD on 03/27/18 at 2230. He has an order for Ativan 2 mg IVP Q2hrs for hallucinations. Pt received PRN Ativan 2 mg for hallucinations. Pt with IV on right wrist 20 gauge, patent and flushing well. He was receiving a 5 day Ativan and Subutex taper but was changed to a modified phenobarbital taper today. Pt tolerating well. Pt received PRN Ativan 2 mg for hallucinations. Pt lying in bed with eyes closed noted to be asleep. Breathing is even and unlabored, safety measures in place, 1:1 sitter at bedside. Will continue to monitor.
[2018-03-28 20:00] VITALS: BP 115/65
--- NOTE | 2018-03-28 20:00 | NUR ---
COWS/CIWA DEFERRED Pt lying in bed with eyes closed and is noted to be asleep. Unable to assess COWS and CIWA. Breathing is even and unlabored. Safety measures in place. 1:1 sitter at bedside. Will monitor.
[2018-03-28] MEDS: TRAZODONE 100 MG TABLET PO SCH (21:00)
--- NOTE | 2018-03-28 22:00 | NUR ---
NON-ADMINISTERED MEDICATION 2100 Trazodone 200 mg not administered d/t pt is asleep. Breathing even and unlabored, safety measures in place. Will continue to monitor.
[2018-03-29 01:00] VITALS: BP 110/70
[2018-03-29 04:00] VITALS: BP 108/68
--- NOTE | 2018-03-29 07:04 | NUR ---
END OF SHIFT Pt is a 27 year old male patient admitted on 03/23/18 for ETOH, Xanax, Heroin and Marijuana withdrawal. He remains alert and oriented x2. He continues on a 1:1 and remains on a 5150 for GD. Pt with IV on right wrist 20 gauge, patent and flushing well. He continues on a phenobarbital taper and is tolerating well. Pt's routine 2100 Trazodone 200 mg was non-administered d/t pt was asleep. He slept a total of11 hrs, Intake: 0, Void: 0, BM:0, Unable to assess pt's COWS and CIWA d/t pt was asleep for the majority of the shift. Breathing is even and unlabored, safety measures in place, 1:1 sitter at bedside. Will endorse to AM shift.
--- NOTE | 2018-03-29 07:30 | NUR ---
START OF SHIFT Pt 27 y/o male admitted for bzo/ etoh / opiate withdrawal. Pt received in room on bed with eyes closed resting. Pt alert and oriented to name. Respirations even and unlabored. Pt appears disheveled. Clothes scattered throughout the room and mostly on the floor. Drink bottles scattered throughout the room as well. Pt with 1:1 for safety. It was reported that pt was asleep throughout the night. Pt is on a modified phenobarbital taper. IV to right hand intact and in place, patent and is saline locked, with no redness noted. Bed on lowest position with side rails x2 up for safety. Call light within reach.
[2018-03-29 08:00] VITALS: BP 123/64
[2018-03-29] MEDS: PHENOBARBITAL 60 MG TABLET PO SCH ×3 (09:00→17:39)
[2018-03-29] MEDS: THIAMINE HCL 100 MG TABLET PO SCH ×2 (09:00→10:42)
[2018-03-29] MEDS: FOLIC ACID 1 MG TABLET PO SCH ×2 (09:00→10:42)
[2018-03-29] MEDS: OLANZAPINE ZYDIS 5 MG TAB.RAPDIS PO SCH ×3 (09:00→17:38)
[2018-03-29] MEDS: MULTIVITAMINS,THERAPEUTIC TABLET PO SCH ×2 (09:00→10:42)
--- NOTE | 2018-03-29 09:00 | NUR ---
MEDICATIONS HELD Medications held. Pt with eyes closed resting.
--- NOTE | 2018-03-29 09:00 | NUR ---
CIWA/ COWS DEFERRED Pt in bed with eyes closed resting. ciwa/cows deferred.
--- NOTE | 2018-03-29 10:30 | NUR ---
MEDICATIONS LATE Medications administered late due to patient waking up with bilateral gross tremors, and appears anxious and restless.
[2018-03-29 12:17] VITALS: BP 120/68
[2018-03-29 16:00] VITALS: BP 123/74
--- NOTE | 2018-03-29 18:56 | NUR ---
END OF SHIFT Pt 61 y/o female admitted for opiate withdrawal. Pt alert and oriented to name, place, and time. Perrla. Skin warm and moist to touch. Respirations even and unlabored. Bilateral hand tremors noted. Pt with sad affect noted. Pt appears disheveled. Clothes and empty drink bottles scattered throughout the room. Encouraged to maintain hygiene. Pt isolative to room throughout the day. Pt did not attend group activity. Pt with low motivation for self care. Pt was seen by MD today. Pt medication compliant. Last cows=10 @1600. Pt is on a 5 day subutex taper and is on day 4. Pt with c/o leg cramps this afternoon and was given baclofen po prn per MD order. Bed on lowest position with side rails x2 up for safety. Call light within reach. Addendum: 03/29/18 at 1857 by CHELSY WOODS RN incorrect pt
--- NOTE | 2018-03-29 18:57 | NUR ---
END OF SHIFT Pt 27 y/o male admitted for bzo/ etoh / opiate withdrawal. Pt alert and oriented to name and place. Perrla. Skin warm and moist to touch. Respirations even and unlabored. Bilateral hand gross tremors noted. Pt disheveled and unkempt. Clothes and food wrappings scattered throughout the room. Encouraged pt to maintain hygiene. Peripheral IV 22g on right hand in tact and in place with no redness noted and is saline lock and patent. Pt with 1:1 sitter to monitor for safety. Pt did not attend group activity this morning. Pt remained isolative to room throughout the day. Pt with low motivation for self care. Sad affect noted. Pt was seen by MD today. Pt medication compliant. Medications due at 0900 were administered late at 1030 because was resting with eyes closed at [id number]. Pt is on a 4 day Phenobarbital taper and is on day 3. Pt also completed a 5 day subutex taper. Last ciwa=13 cows=13 @1600. Bed on lowest position with side rails x2 up for safety. Call light within reach.
[2018-03-29 20:00] VITALS: BP 108/66
--- NOTE | 2018-03-29 20:00 | NUR ---
Start of Shift Patient awake, appears melancholic and in depressed mood. Patient noted to avoid conversation, but verbalized feeling so much better after sleeping for more than 12 hours and waking up at 11 in the morning per report. Continues to be on 1:1, on 5150 status. Patient observed to be anxious, appears disheveled and unkempt. IV access removed as per MD order. Fall, universal, seizure and safety prec in place. Call light within reach. Latest COWS=10, CIWA=11. Will continue to monitor.
[2018-03-29] MEDS: TRAZODONE 100 MG TABLET PO SCH (21:27)
[2018-03-30] VITALS: BP 115/68
[2018-03-30 04:00] VITALS: BP 109/71
--- NOTE | 2018-03-30 07:16 | NUR ---
End of Shift Patient continues to be melancholic and in depressed mood. Patient verbalized feeling better after getting another round of sleep for the second time since admission. Continues to be on 1:1, on 5150 status. Patient with intermittent anxiety, encouraged to take a shower due to him appearing disheveled and unkempt. Fall, universal, seizure and safety prec in place. Call light within reach. Latest COWS=10, CIWA=9, slept for 7 hours. Endorsed to AM shift nurse for continuity of care.
--- NOTE | 2018-03-30 07:30 | NUR ---
START OF SHIFT Pt 27 y/o male admitted for bzo/ etoh / opiate withdrawal. Pt received in room on bed with eyes closed resting. Pt alert and oriented to name, place, and time. Respirations even and unlabored. Bilateral hand tremors noted. Pt with sad affect noted. Pt appears disheveled. Clothes scattered throughout the room. Encouraged to maintain hygiene. Pt with 1:1 for safety. It was reported that pt slept for 7 hours last night. Pt is on a modified phenobarbital taper and is on day 4. Bed on lowest position with side rails x2 up for safety. Call light within reach. Pt is scheduled to be discharged today. Pt excited about discharge. Addendum: 03/30/18 at 0859 by CHELSY WOODS RN correction Pt is not scheduled to be discharged today. Pt is scheduled to be discharged tomorrow.
[2018-03-30 08:00] VITALS: BP 107/60
[2018-03-30] MEDS: THIAMINE HCL 100 MG TABLET PO SCH (08:27)
[2018-03-30] MEDS: MULTIVITAMINS,THERAPEUTIC TABLET PO SCH (08:27)
[2018-03-30] MEDS: OLANZAPINE ZYDIS 5 MG TAB.RAPDIS PO SCH ×2 (08:27→16:54)
[2018-03-30] MEDS: FOLIC ACID 1 MG TABLET PO SCH (08:27)
[2018-03-30] MEDS ORDERED: PHENOBARBITAL 60 MG TABLET PO SCH (09:00)
--- NOTE | 2018-03-30 10:15 | NUR ---
[address] Benitez to not continue hold.
--- NOTE | 2018-03-30 11:35 | NUR ---
1:[address] Emmanuel valdez 1:1 sitter.
[2018-03-30 12:17] VITALS: BP 127/76
[2018-03-30 16:00] VITALS: BP 139/72
--- NOTE | 2018-03-30 18:21 | NUR ---
END OF SHIFT Pt 27 y/o male admitted for bzo/ etoh / opiate withdrawal. Pt alert and oriented to name, place, and time. Perrla. Skin warm and moist to touch. Respirations even and unlabored. Bilateral hand tremors noted. Pt appears disheveled. Clothes scattered throughout the room. Encouraged to maintain hygiene. Pt observed mostly isolative to room throughout the day. Pt with sad affect noted. Pt did not attend group activity. Pt medication compliant. Pt was seen by MD. Pt completed a 4 day Phenobarbital taper and also a 5 day subutex taper. Last cows=6 and ciwa=6 @1600. 1:1 sitter was dcd this morning. Bed on lowest position with side rails x 2 up for safety. Call light within reach. Pt is scheduled to be discharged tomorrow to home.
[2018-03-30 20:00] VITALS: BP 125/66
--- NOTE | 2018-03-30 20:00 | NUR ---
Start of Shift Patient with bilateral tremors noted and is disheveled. Patient is aware that he is going to be discharged to home tomorrow. Patient is appears melancholic and in depressed mood. Patient noted to intermittently stare at the ceiling. Patient observed to be anxious, appears disheveled and unkempt. Educated patient importance of cleanliness. Patient verbalized being ready for discharge and that he is excited for his renewed lease on life. Fall, universal, seizure and safety prec in place. Call light within reach. Latest COWS=9, CIWA=10. Will continue to monitor.
[2018-03-30] MEDS: IBUPROFEN 600 MG TABLET PO PRN (21:33)
[2018-03-30] MEDS: TRAZODONE 100 MG TABLET PO SCH (21:33)
--- NOTE | 2018-03-30 21:33 | NUR ---
RN note PRN Motrin Patient c/o right hand pain=6/10. Administered Motrin 600 mg PO PRN as ordered. Will reassess.
--- NOTE | 2018-03-30 22:35 | NUR ---
RN note reassess Patient verbalized that pain level on the right hand decreased to 2/10.
[2018-03-31] VITALS: BP 124/70
--- NOTE | 2018-03-31 00:15 | NUR ---
RN note Patient verbalized that he was feeling better, though still noted to be isolative, melancholic and in depressed mood. Patient stated that he wanted to go back to sleep. COWS=8, CIWA=9. Will continue to monitor.
[2018-03-31 04:00] VITALS: BP 115/72
--- NOTE | 2018-03-31 07:04 | NUR ---
End of Shift Patient continues to be melancholic and in depressed mood. Patient with intermittent anxiety, appears disheveled and unkempt. Patient verbalized that he will take a shower today before discharge. Patient verbalized that he is ready to face the challenges in maintaining sobriety. Fall, universal, seizure and safety prec in place. Call light within reach. Latest COWS=7, CIWA=7, slept for 9 hours. Endorsed to AM shift nurse for continuity of care.
--- NOTE | 2018-03-31 07:28 | NUR ---
Start of shift note; Received report from night nurse. Patient is a 27 year old male admitted on 03/23/18 for ETOH/Benzodiazepine and Opiate withdrawals. Patient completed Subutex /Phenobarbital taper. Patient is scheduled for discharge today. No further hallucinations or delirium reported. Patient is currently resting with eyes closed, respirations of 18 noted. Will do thorough re-assessment when patient is awake. Patient's last COWS score is 7 and Last CIWA score is 7 manifested by anxiety, diaphoresis, muscle aches, restless legs per endorsement. Patient slept for 9 hours last night. All safety measures secured. Will continue to monitor patient.
[2018-03-31 08:00] VITALS: BP 115/67
--- NOTE | 2018-03-31 08:10 | NUR ---
Nurse assessment note; Patient is AOX4, presented with anxiety, sweats, complaining of headache, restless legs, stomach cramps with current CIWA score of 7 and COWS score of 7. Patient denies any auditory or visual hallucinations. Patient also denies suicidal/homicidal ideations. Educated patient regarding the importance of sobriety, patient verbalized understanding. Patient is motivated to continue with sobriety after being discharged today. Will continue to monitor patient.
[2018-03-31] MEDS ORDERED: HYDR-3895 PO (08:17)
[2018-03-31] MEDS ORDERED: TRAZ-144 GT (08:17)
[2018-03-31] MEDS ORDERED: TRAZ-147 PO (08:29)
[2018-03-31] MEDS: THIAMINE HCL 100 MG TABLET PO SCH (08:33)
[2018-03-31] MEDS: MULTIVITAMINS,THERAPEUTIC TABLET PO SCH (08:33)
[2018-03-31] MEDS: FOLIC ACID 1 MG TABLET PO SCH (08:33)
[2018-03-31] MEDS: OLANZAPINE ZYDIS 5 MG TAB.RAPDIS PO SCH (08:33)
[2018-03-31] MEDS: IBUPROFEN 600 MG TABLET PO PRN (08:38)
--- NOTE | 2018-03-31 09:34 | NUR ---
Discharge note; Patient is AOX4, denies auditory/visual hallucinations. Patient also denies suicidal/homicidal ideations. Patient completed treatment without any adverse reactions. All valuables, belongings, prescriptions, discharge summary explained and given to patient. Notified patient regarding firearms prohibition and right to hearing, patient verbalized understanding. Educated patient regarding the importance of sobriety , patient verbalized understanding. Patient was escorted out of the facility by [employer], patient left at exactly 0934 on 03/31/18. Met all needs.
== END 2018-03-31 09:34 | disposition home or self-care (01) | DRG 895 ==
LOC: SRC 17:15
PROVIDERS: ADMIT Family Medicine; ATTEND Family Medicine Addiction Medicine
PROC: HZ2ZZZZ Detoxification Services for Substance Abuse Treatment (ICD-10-PCS; principal; 2018-03-23)
PROC: HZ41ZZZ Group Counseling for Substance Abuse Treatment, Behavioral (ICD-10-PCS; 2018-03-25)
PROC: HZ31ZZZ Individual Counseling for Substance Abuse Treatment, Behavioral (ICD-10-PCS; 2018-03-26)
DX: F10.231 Alcohol dependence with withdrawal delirium (principal); F13.20 Sedative, hypnotic or anxiolytic dependence, uncomplicated; K86.1 Other chronic pancreatitis; F11.23 Opioid dependence with withdrawal; Y90.9 Presence of alcohol in blood, level not specified; E87.6 Hypokalemia; Z91.89 Other specified personal risk factors, not elsewhere classified; F17.210 Nicotine dependence, cigarettes, uncomplicated; F12.20 Cannabis dependence, uncomplicated; G47.00 Insomnia, unspecified; D72.823 Leukemoid reaction
CPT/HCPCS: 36415; 70030-TC; 73130; 80307; 80346; 80349; 83735; 85025; 86580; 86592; 86705; 86803; 87340; 87806; A4663; G0480; J1200; J1630; J2060; J3411; J8499; Q0163